=== PATIENT | female | born 1950 | race Caucasian/White ===

== ENCOUNTER 2025-05-06 15:14 | Emergency (ER) | payer OTHER ==
[~2025-05-06] VITALS: Ht 157.5 cm; Wt 54.4 kg
[2025-05-06] MEDS ORDERED: HYDR-4209 PO (17:01)
[2025-05-06] MEDS ORDERED: HYDROCODONE/APAP 5/325MG TABLET ONE (17:12)
[2025-05-06] MEDS ORDERED: KETOROLAC TROMETHAMINE INJ 30 MG/ML VIAL ONE (17:13)
[2025-05-06] MEDS: KETOROLAC TROMETHAMINE INJ 30 MG/ML VIAL IM ONE (17:19)
[2025-05-06] MEDS: HYDROCODONE/APAP 5/325MG TABLET PO ONE (17:22)
[2025-05-06 17:25] VITALS: BP 130/87; TEMP 98.4; O2SAT 99
== END 2025-05-06 17:25 | disposition home or self-care (01) ==
LOC: ER 15:21
DX: S93.401A Sprain of unspecified ligament of right ankle, initial encounter (principal); I48.91 Unspecified atrial fibrillation; E78.5 Hyperlipidemia, unspecified; W18.39XA Other fall on same level, initial encounter; Y93.89 Activity, other specified; Y92.89 Other specified places as the place of occurrence of the external cause; Y99.8 Other external cause status
CPT/HCPCS: 99283; 96372; 73610; J1885